=== PATIENT | female | born 1990 | race Caucasian/White ===

== ENCOUNTER 2017-07-20 14:59 | Emergency (ER) | payer OTHER ==
--- NOTE | 2017-07-20 15:29 | ED ---
HPI Chest Pain - HPI Summary HPI Summary: 27F presents with intermittent chest pain for 3 days. She states she has history of palpitations that was told are stressed related. She states she gets chest pressure that feels like fire up into left arm. She denies any diaphoresis, nausea, vomiting. pain does not change with positional change. no history of GERD. She states with palpitation sometimes gets SOB. She states she is stressed. She denies any abdominal pain, lightheadedness or dizziness. She denies any headache. She states the chest pain is related to the palpitations. She states she feels that her heart is pounding at times or that there are couple beats in a row. Her father has a history of palpitations that are stressed related. no cardiac history in family. is on ocp. no fever or recent illness. no cough. She is not a smoker. She does not have a history of HTN or DM. - History of Current Complaint Chief Complaint: EDChestPainROMI Time Seen by Provider: 07/20/17 15:08 Pain Intensity: 0 - Allergy/Home Medications Allergies/Adverse Reactions: Allergies Allergy/AdvReac Type Severity Reaction Status Date / Time No Known Allergies Allergy Verified 07/20/17 15:06 PMH/Surg Hx/FS Hx/Imm Hx Endocrine/Hematology History: Denies: Hx Anticoagulant Therapy, Hx Diabetes Cardiovascular History: Denies: Hx Hypertension Respiratory History: Reports: Hx Asthma - childhood Infectious Disease History: No Infectious Disease History: Denies: Traveled Outside the [place] in Last 30 Days - Family History Known Family History: Positive: Other - palpitations Negative: Cardiac Disease - Social History Alcohol Use: None Substance Use Type: Reports: None Smoking Status (MU): Never Smoked Tobacco Review of Systems Negative: Fever Positive: Chest Pain Positive: Shortness Of Breath. Negative: Cough All Other Systems Reviewed And Are Negative: Yes Physical Exam Triage Information Reviewed: Yes Vital Signs On Initial Exam: Initial Vitals Temp Pulse Resp BP Pulse Ox 97.9 F 106 16 126/92 98 07/20/17 15:02 07/20/17 15:02 07/20/17 15:02 07/20/17 15:02 07/20/17 15:02 Vital Signs Reviewed: Yes Appearance: Positive: Well-Appearing Skin: Positive: Warm, Dry Head/Face: Positive: Normal Head/Face Inspection Eyes: Positive: Normal, EOMI, EDWIN, Conjunctiva Clear ENT: Positive: Normal ENT inspection, Pharynx normal, TMs normal Respiratory/Lung Sounds: Positive: Clear to Auscultation, Breath Sounds Present Cardiovascular: Positive: Normal, RRR Musculoskeletal: Positive: Normal Neurological: Positive: Normal Psychiatric: Positive: Anxious Diagnostics - Vital Signs Vital Signs Temp Pulse Resp BP Pulse Ox 07/20/17 15:02 97.9 F 106 16 126/92 98 - Laboratory Result Diagrams: 07/20/17 15:54 07/20/17 15:54 Lab Statement: Any lab studies that have been ordered have been reviewed, and results considered in the medical decision making process. - Radiology chest Xray Interpretation: No Acute Changes Radiology Interpretation Completed By: Radiologist - EKG No standard instances Cardiac Rate: NL EKG Rhythm: Sinus Rhythm EKG Interpretation: normal sinus rhythm no specific t wave changes likely artificat Chest Pain Course/Dx - Course Course Of Treatment: 27F presents with intermittent chest pain for 3 days. She states she has history of palpitations that was told are stressed related. She states she gets chest pressure that feels like fire up into left arm. She denies any diaphoresis, nausea, vomiting. pain does not change with positional change. no history of GERD. She states with palpitation sometimes gets SOB. She states she is stressed. She denies any abdominal pain, lightheadedness or dizziness. She denies any headache. She states the chest pain is related to the palpitations. She states she feels that her heart is pounding at times or that there are couple beats in a row. Her father has a history of palpitations that are stressed related. no cardiac history in family. is on ocp. no fever or recent illness. no cough. She is not a smoker. She does not have a history of HTN or DM. normal PE. appears anxious. ekg sinus rhythm with artifact present as patient kept moving. troponin neg. d-dimer neg. only got one troponin as no chest pain currently and last time had chest pain was this morning over 6 hours ago. hear score 1. gave cardiology referral for palpitations. believe palpitations are likely anxiety related though. patient understand and agrees with plan. - Chest Pain Differential Diagnosis/HQI/PQRI: Acute AR, Chest Wall, Pulmonary Embolism, Other : - anxiety, palpitations - Diagnoses Provider Diagnoses: Chest pain, Palpitation Discharge - Discharge Plan Condition: Good Disposition: HOME Patient Education Materials: Palpitations (ED) Referrals: Non Staff,Doctor [Primary Care Provider] - Norma Carson MD [Medical Doctor] - Additional Instructions: Take tyenlol or ibuprofen for pain Take deep breathes Follow up with counter control operator about palpitations Return to ED if develop any new or worsening symptoms
[2017-07-20 15:59] LABS: Comments Flag Yes; Hematocrit 42 % (35-47); Hemoglobin 14.3 g/dl (12.0-16.0); Mean Corpuscular HGB Conc 34 g/dl (31-36); Mean Corpuscular Hemoglobin 30 pg (27-31); Mean Corpuscular Volume 89 fL (80-97); Mean Platelet Volume 8 um3 (7.4-10.4); Red Blood Count 4.76 10^6/ul (4.0-5.4); Red Cell Distribution Width 13 % (10.5-15)
[2017-07-20 16:00] LABS: Add Diff/Slide Review? Slide Review Added
[2017-07-20 16:18] LABS: ALT 10 U/L (7-52); AST 20 U/L (13-39); Albumin 4.7 g/dL (3.2-5.2); Alkaline Phosphatase 49 U/L (34-104); Anion Gap 7 mmol/L (2-11); BUN/Creatinine Ratio 6.9 (8-20); Blood Urea Nitrogen 5 mg/dL (6-24); CO2 Carbon Dioxide 23 mmol/L (22-32); Calcium 9.4 mg/dL (8.6-10.3); Chloride 107 mmol/L (101-111); EGFR Non-African American 97.2 (>60); Globulin 2.9 g/dL (2-4); Glucose 102 mg/dL (70-100); Potassium 3.7 mmol/L (3.5-5.0); Sodium 137 mmol/L (133-145); Total Protein 7.6 g/dL (6.4-8.9)
--- NOTE | 2017-07-20 16:18 | RAD ---
INDICATION: Left-sided chest pain COMPARISON: None TECHNIQUE: PA and lateral views of the chest were obtained. FINDINGS: The heart and mediastinum are normal in size and contour. The lungs are grossly clear. There is no evidence of large pleural effusion. Visualized bones are normal for the patient's age. There is no radiographic evidence of free air beneath the diaphragm IMPRESSION: No radiographic evidence of acute cardiopulmonary disease.
[2017-07-20 16:53] LABS: TSH (Thyroid Stimulating Horm) 2.27 mcIU/mL (0.34-5.60)
[2017-07-20 17:04] VITALS: BP 106/72
== END 2017-07-20 17:13 | disposition home or self-care (01) ==
LOC: ED 14:59
DX: R07.9 Chest pain, unspecified (principal); R00.2 Palpitations
CPT/HCPCS: 36415; 71020; 80053; 83605; 83880; 84443; 84484; 84702; 85025; 85379; 93005; 99282